=== PATIENT | female | born 1960 | race Caucasian/White ===

== ENCOUNTER → 2016-10-20 | Outpatient (CLI) | payer OTHER ==
[~2016-10-20] MED LIST: ACETAMINOPHEN650 M3 PO; ALPRAZOLAM PO; AZELASTINE137 MCG/0. NS; BENTYL20 M1 PO; CLARITIN10 M2 PO; CLOTRIMAZOLE/BE15 GM TP; HYDROCODONE-APA1 T56 PO; K-DUR10 MEQ PO; LASIX20 MG PO; LIPITOR40 MG PO; LOTRISONE CREAM45 GM TOP; MICRO-K10 ME2 PO; NAPROSYN500 MG; NAPROXEN PO; NASONEX17 GM; NORVASC2.5 MG PO; OMEPRAZOLE20 M2 PO; ORUDIS75 M1 PO; PRAVASTATIN SOD40 MG PO; PRILOSEC20 M1 PO; SINGULAIR PO; VITAMIN D1000 UNI1 PO; VITAMIN D50000 UNIT PO; ZESTORETIC 20/11 TAB PO; ZYRTEC PO; [UNRECOGNIZED DRUG - REMARK]
--- NOTE | ~2016-10-20 | MY11 ---
[facility] A Service of [facility] RADIOLOGY TEXT RESULTS PATIENT: CARLTON NIELSON LOCATION: [facility] : 58 UNIT #: [id number] AGE: [address]: Artis Lane MD SEX: F ORDER DR: [id number] [facility]. [place], [place] [address] [id number] O MR#: [id number] Acc #: [id number] NAME: CARLTON NIELSON. : 1960 SEX: F STUDY DATE/TIME: 10/20/2016 13:45 UNIT: [facility] ROOM: STUDY DESCRIPTION: MY Mammogram Screening Dig Mike Attending Physician: Artis Lane M.D. Ordering Physician: Artis Lane M.D. Primary Care Physician: Artis Lane M.D. MEDICAL IMAGING REPORT This report is preliminary unless electronic signature is present EXAM Bilateral digital screening mammogram with CAD 10/20/2016 INDICATIONS 56-year-old female for routine screening. No reported problems and no personal or family history of breast cancer. No surgeries. TECHNIQUE CC and MLO views of breast were obtained and reviewed with a FDA-approved CAD device. COMPARISON STUDIES 10/19/2015, 07/17/2014, 12/23/2013 and 06/27/2013. FINDINGS Breast parenchyma is composed of scattered fibroglandular densities. The pattern is unchanged. There is no new dominant nodule, mass or suspicious clustered microcalcifications. Nodularity in the outer hemispheres of both breasts is best seen on the CC projection, unchanged from multiple prior studies dating back to at least 2012. IMPRESSION 1. Benign screening mammogram. 1-year follow up recommended. BIRADS: 2 Benign Finding. Patients over the age of 40 are entered into a reminder system with target due date for the next mammogram. A result letter will also be sent to the patient. Dictated by... [facility] A Service of [facility] / [facility] RADIOLOGY TEXT RESULTS PATIENT: CARLTON NIELSON LOCATION: [facility] : 58 UNIT #: [id number] AGE: [address]: Artis Lane MD SEX: F ORDER DR: Keanu Arias M.D. THIS IS AN ELECTRONICALLY VERIFIED REPORT Keanu Arias M.D. at 10/21/2016 11:16 AM ALEKSANDRA/paige TD: 10/20/2016 19:17 JOB #: [id number] MEDICAL IMAGING REPORT COPY
== END | disposition home or self-care (01) ==
LOC: CWCC 13:27
DX: Z12.31 Encounter for screening mammogram for malignant neoplasm of breast (principal)
CPT/HCPCS: G0202